=== PATIENT | female | born 1980 | race Caucasian/White ===

== ENCOUNTER 2021-03-27 10:56 | Emergency (ER) | payer OTHER ==
[~2021-03-27] VITALS: Ht 170.2 cm; Wt 117.7 kg
--- NOTE | 2021-03-27 11:28 | PHYS DOC ---
Past History Past Medical History: Other Additional Past Medical Histor: kidney transplant Past Surgical History: Hysterectomy, Other Additional Past Surgical Histo: kidney transplant in 2015 Smoking: Non-smoker Alcohol Use: Occasionally Drug Use: None Adult General Chief Complaint Chief Complaint: NAUSEA/VOMITING/DIARRHEA [facility] HPI Patient is a 40-year-old female presenting for nausea vomiting diarrhea. Symptom onset was yesterday evening, reports eating homemade hamburger grilled at work for lunch and later ate Bengali food dinner. Reports several hours after dinner experiencing generalized nausea, abdominal cramping with subsequent x3 episodes of nonbloody nonbilious emesis and looser stools than usual without blood. P.o. intake makes worse, nothing known makes better. Reports fatigue overnight. Woke up with continued nausea and x1 episode of nonbloody nonbilious emesis with ongoing nausea and feelings of dry heaving. Also reports decreased urine output than usual which concerns her given kidney history. 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 She called her transplant physician this morning to review case, it was advised she come to our ER for evaluation and if need be, transfer to [facility] for continued inpatient medical management as indicated. Patient denies recent travel, sick contacts, fever, vision changes, chest pain, shortness of breath, cough, abdominal pain besides generalized cramping, no UTI-like symptoms, no rashes Review of Systems Review of Systems Fourteen body systems of review of systems have been reviewed. See HPI for pertinent positives and negative responses, other aguilera all other systems are negative, non-pertinent or non-contributory Allergies Allergies Allergies Coded Allergies Type Severity Reaction Last Updated Verified No Known Drug Allergies 04/07/14 No Physical Exam Physical Exam Constitutional: Well developed, well nourished, no acute distress, non-toxic appearance. HENT: Normocephalic, atraumatic, bilateral external ears normal, oropharynx moist, no oral exudates, nose normal. Eyes: PERRLA, EOMI, conjunctiva normal, no discharge. Neck: Normal range of motion, no tenderness, supple, no stridor. Cardiovascular: Heart rate tachycardic, sinus rhythm, no murmurs rubs or gallops Lungs & Thorax: Bilateral breath sounds clear to auscultation Abdomen: Bowel sounds normal, soft, no tenderness, no masses, no pulsatile masses. Nonsurgical abdomen, no peritoneal signs Skin: Warm, dry, no erythema, no rash. Back: No tenderness, no CVA tenderness. Extremities: No tenderness, no cyanosis, no clubbing, ROM intact, no edema. Neurologic: Alert and oriented X 3, grossly normal motor & sensory function, no focal deficits noted. Psychologic: Affect normal, judgement normal, mood normal. Current Patient Data Vital Signs Vital Signs Date Time Temp Pulse Resp B/P (MAP) Pulse Ox O2 Delivery O2 Flow Rate FiO2 03/27/21 11:08 98.2 112 18 153/82 (105) 96 Room Air Lab Results Laboratory Tests Test 03/27/21 11:20 03/27/21 12:22 White Blood Count 7.3 x10^3/uL Red Blood Count 3.97 x10^6/uL Hemoglobin 13.3 g/dL Hematocrit 39.0 % Mean Corpuscular Volume 98 fL Mean Corpuscular Hemoglobin 33 pg Mean Corpuscular Hemoglobin Concent 34 g/dL Red Cell Distribution Width 13.3 % Platelet Count 176 x10^3/uL Neutrophils (%) (Auto) 85 % Lymphocytes (%) (Auto) 8 % Monocytes (%) (Auto) 6 % Eosinophils (%) (Auto) 1 % Basophils (%) (Auto) 0 % Neutrophils # (Auto) 6.2 x10^3uL Lymphocytes # (Auto) 0.6 x10^3/uL Monocytes # (Auto) 0.4 x10^3/uL Eosinophils # (Auto) 0.0 x10^3/uL Basophils # (Auto) 0.0 x10^3/uL Sodium Level 140 mmol/L Potassium Level 4.1 mmol/L Chloride Level 107 mmol/L Carbon Dioxide Level 24 mmol/L Anion Gap 9 Blood Urea Nitrogen 19 mg/dL Creatinine 1.2 mg/dL Estimated GFR (Cockcroft-Gault) 49.8 BUN/Creatinine Ratio 16 Glucose Level 104 mg/dL Lactic Acid Level 1.2 mmol/L Calcium Level 9.1 mg/dL Total Bilirubin 0.5 mg/dL Aspartate Amino Transf (AST/SGOT) 11 U/L Alanine Aminotransferase (ALT/SGPT) 23 U/L Alkaline Phosphatase 74 U/L Troponin I Quantitative < 0.017 ng/mL Total Protein 7.1 g/dL Albumin 3.5 g/dL Albumin/Globulin Ratio 1.0 Urine Collection Type Unknown Urine Color Margarette Urine Clarity Hazy Urine pH 5.5 Urine Specific [place] >=1.030 Urine Protein >100 mg/dl Urine Glucose (UA) Neg mg/dL Urine Ketones (Stick) Trace mg/dL Urine Blood Neg Urine Nitrite Neg Urine Bilirubin Small Urine Urobilinogen Dipstick 0.2 mg/dL Urine Leukocyte Esterase Neg Urine RBC 0 /HPF Urine WBC 1-4 /HPF Urine Squamous Epithelial Cells Mod /LPF Urine Bacteria Mod /HPF Current Medications Medications (Trade) Dose Ordered Sig/Ary Route PRN Reason Start Time Stop Time Status Last Admin Dose Admin Sodium Chloride 1,000 ml @ 1,000 mls/hr 1X ONCE IV 03/27/21 11:30 03/27/21 12:29 DC 03/27/21 11:42 Ondansetron HCl (Zofran) 4 mg 1X ONCE IVP 03/27/21 12:15 03/27/21 12:16 DC 03/27/21 12:18 EKG EKG EKG ordered and interpreted by myself at 1156 hrs. as sinus tachycardia at 101 bpm, unremarkable intervals, no axis deviation, T wave inversion noted in lead III otherwise no acute ischemic findings, no STEMI Radiology/Procedures Radiology/Procedures XR CHEST 1V INDICATION: tachycardia COMPARISON STUDY: None. FINDINGS: Lungs: Normal lung volume. No pulmonary mass or consolidation. The tracheobronchial tree and hilar structures are normal. Pleura: No pleural effusion or pneumothorax. Heart and Mediastinum: The cardiomediastinal silhouette is normal. The great vessels of the thorax are normal. Bones and Soft Tissues: The bones and soft tissues are within normal limits. IMPRESSION: No acute cardiopulmonary process. Electronically signed by: Nimesh Kwon MD (03/27/2021 11:52 AM) [id number] Heart Score C/O Chest Pain: No HEART Score for Chest Pain: HEART Score for Chest Pain Response (Comments) Value History Slighlty/Non-Suspicious 0 ECG Normal 0 Age < 45 0 Risk Factors 1 or 2 Risk Factors 1 Troponin < Normal Limit 0 Total 1 Risk Factors: Risk Factors: DM, Current or recent (<one month) smoker, HTN, HLP, family history of CAD, obesity. Risk Scores: Risk Factors: DM, Current or recent (<one month) smoker, HTN, HLP, family history of CAD, obesity. Course & Med Decision Making Course & Med Decision Making Tachycardic otherwise hemodynamically stable. HPI concerning for dehydration and patient with kidney transplant and immunocompromise, physical exam and ER work-up nonconcerning. Patient tolerated ER intervention including IV fluid rehydration and antiemetics well, asymptomatic and nonconcerning on clinical examination after being reevaluated several times. Discussed little utility in further diagnostic work- up in ER setting and/or need for hospital transfer for higher acuity of care Joint decision made to discharge home with close PCP follow-up and continued supportive care advised. Strict return precautions discussed with good understanding. All questions and concerns addressed prior to your departure Dragon Disclaimer Dragon Disclaimer This electronic medical record was generated, in whole or in part, using a voice recognition dictation system. Departure Departure: Impression: Primary Impression: Nausea, vomiting and diarrhea Disposition: HOME / SELF CARE / HOMELESS Condition: STABLE Referrals: LUCIAN CUADRA MD (PCP) Patient Instructions: Nausea and Vomiting Additional Instructions: You were seen for nausea, vomiting and diarrhea. You most likely have a viral illness which should resolve in the next few days to a week. Your vital signs, physical examination and comprehensive ER work-up was nonconcerning for any emergent or surgical issues. You tolerated IV fluid rehydration and antinausea medication while in ER. Please contact your primary care physician first thing on Monday to review your ER visit today and need for close outpatient follow-up. You should return to the ED if you develop abdominal pain, fever > 100.3, black/bloody stools, black/bloody vomiting, cannot keep water down, or any other new or concerning symptoms. Scripts Ondansetron (ONDANSETRON ODT) 4 Mg Tab.rapdis 1 TAB PO PRN Q6-8HRS for NAUSEA, #16 TAB Prov: LILLY GALEANO DO 03/27/21 LILLY GALEANO DO Mar 27, 2021 11:28
[2021-03-27] MEDS ORDERED: IV NORMAL SALINE 1,000ML 1,000 ML IV ONE (11:30)
[2021-03-27 11:36] LABS: BASO % 0 % (0-3); EOS % 1 % (0-3); HEMOGLOBIN 13.3 g/dL (12.0-15.5); LYMPH # 0.6 x10^3/uL (1.0-4.8); LYMPH % 8 % (24-48); MEAN CORPUSCULAR HEMOGLOBIN 33 pg (25-35); MEAN CORPUSCULAR HGB CONC 34 g/dL (31-37); MEAN CORPUSCULAR VOLUME 98 fL (79-100); MONO # 0.4 x10^3/uL (0.0-1.1); MONO % 6 % (0-9); NEUT # 6.2 x10^3uL (1.8-7.7); NEUT % 85 % (31-73); PLATELET COUNT 176 x10^3/uL (140-400); RED BLOOD COUNT 3.97 x10^6/uL (3.50-5.40); RED CELL DISTRIBUTION WIDTH 13.3 % (11.5-14.5); WHITE BLOOD COUNT 7.3 x10^3/uL (4.0-11.0)
[2021-03-27 11:42] VITALS: BP 121/72
[2021-03-27 11:48] LABS: CALCIUM 9.1 mg/dL (8.5-10.1); CREATININE 1.2 mg/dL (0.6-1.0); GFR 49.8; POTASSIUM 4.1 mmol/L (3.5-5.1)
[2021-03-27 11:55] LABS: ALBUMIN 3.5 g/dL (3.4-5.0); TOTAL BILIRUBIN 0.5 mg/dL (0.2-1.0); TOTAL PROTEIN 7.1 g/dL (6.4-8.2)
--- NOTE | 2021-03-27 11:55 | RAD ---
XR CHEST 1V INDICATION: tachycardia COMPARISON STUDY: None. FINDINGS: Lungs: Normal lung volume. No pulmonary mass or consolidation. The tracheobronchial tree and hilar st ructures are normal. Pleura: No pleural effusion or pneumothorax. Heart and Mediastinum: The cardiomediastinal silhouette is normal. The great vessels of the thorax ar e normal. Bones and Soft Tissues: The bones and soft tissues are within normal limits. IMPRESSION: No acute cardiopulmonary process. Electronically signed by: Nimesh Kwon MD (03/27/2021 11:52 AM) [id number]
--- NOTE | 2021-03-27 12:05 | EKG ---
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
[2021-03-27] MEDS ORDERED: ONDANSETRON PF 4 MG/2 ML VIAL. IVP ONE (12:15)
[2021-03-27] MEDS ORDERED: ONDA4TAB12 PO (13:14)
[2021-03-27 13:20] LABS: BILIRUBIN,URINE SMALL (NEG); CLARITY,URINE HAZY; COLOR,URINE AMBER; GLUCOSE,URINE NEG (NEG); NITRITE,URINE NEG (NEG); UROBILINOGEN,URINE 0.2 mg/dL (0.2 mg/dL)
[2021-03-27 13:22] LABS: BACTERIA,URINE MOD /HPF (0-FEW); RBC,URINE 0 /HPF (0-2); SQUAMOUS EPITHELIAL CELL,UR MOD /LPF
== END 2021-03-27 13:30 | disposition home or self-care (01) ==
LOC: ER 10:56
DX: R11.2 Nausea with vomiting, unspecified (principal); R19.7 Diarrhea, unspecified; Z90.710 Acquired absence of both cervix and uterus
CPT/HCPCS: 36415; 71045; 80053; 81001; 83605; 84484; 85025; 87040; 87086; 93005; 96361; 96374; 99285; J2405; J7030

== ENCOUNTER 2021-08-22 08:33 | Emergency (ER) | payer OTHER ==
[~2021-08-22] VITALS: Ht 170.2 cm; Wt 118.5 kg
[~2021-08-22 08:33] MED LIST: ONDA4TAB12 PO
[2021-08-22] MEDS ORDERED: ONDANSETRON ODT 4 MG TAB.RAPDIS ONE (08:52)
[2021-08-22] MEDS ORDERED: ONDANSETRON PF 4 MG/2 ML VIAL. ONE (08:53)
--- NOTE | 2021-08-22 08:57 | PHYS DOC ---
Past History Past Medical History: Other Additional Past Medical Histor: IGA neuropathy Past Surgical History: Hysterectomy, Other Additional Past Surgical Histo: right side kidney transplant Smoking: Non-smoker Alcohol Use: Occasionally Drug Use: None Adult General Chief Complaint Chief Complaint: NAUSEA/VOMITING/DIARRHEA HPI HPI Patient is a 41-year-old female presenting for nausea vomit diarrhea. Onset was approximately 4 to 5 hours ago and woke her from sleep. She presents stating she thinks she got food poisoning. Reports p.o. ingestion yesterday of takeout fried chicken at approximately 1 PM and later had a pink cooked hamburger that was questionably cooked around 9 PM. States she woke up this morning at 3 AM out of her sleep with a wave of nausea and abdominal cramping. Since then, she has had a total of x6 nonbloody nonbilious episodes of emesis and approximately the same amount of nonbloody looser stools than usual. She feels dehydrated and has had ongoing nausea and inability to keep down p.o. fluids sick patient presented to our ER for evaluation. Patient's only pertinent medical issue is fact that she had left nephrectomy in 2014 for IgA nephropathy. She has no other medical diagnoses, takes no medications besides her daily antirejection medications on a daily basis Review of Systems Review of Systems Fourteen body systems of review of systems have been reviewed. See HPI for pertinent positives and negative responses, other aguilera all other systems are negative, non-pertinent or non-contributory Current Medications Current Medications Current Medications Medications (Trade) Dose Ordered Sig/Ary Start Time Stop Time Status Last Admin Dose Admin Ondansetron HCl (Zofran Odt) 4 mg STK-MED ONCE 08/22/21 08:52 08/22/21 08:52 DC Ondansetron HCl (Zofran) 4 mg STK-MED ONCE 08/22/21 08:53 08/22/21 08:53 DC Allergies Allergies Allergies Coded Allergies Type Severity Reaction Last Updated Verified No Known Drug Allergies 08/22/21 No Physical Exam Physical Exam Constitutional: Well developed, well nourished, no acute distress, non-toxic appearance but patient is actively vomiting during examination HENT: Normocephalic, atraumatic, bilateral external ears normal, oropharynx moist, no oral exudates, nose normal. Eyes: PERRLA, EOMI, conjunctiva normal, no discharge. Neck: Normal range of motion, no tenderness, supple, no stridor. Cardiovascular: Heart rate tachycardic, sinus rhythm, no murmurs rubs or gallops Lungs & Thorax: Bilateral breath sounds clear to auscultation Abdomen: Bowel sounds normal, soft, no tenderness, no masses, no pulsatile masses. Nonsurgical abdomen, no peritoneal signs Skin: Warm, dry, no erythema, no rash. Back: No tenderness, no CVA tenderness. Extremities: No tenderness, no cyanosis, no clubbing, ROM intact, no edema. Neurologic: Alert and oriented X 3, grossly normal motor & sensory function, no focal deficits noted. Psychologic: Anxious affect and mood Current Patient Data Vital Signs Vital Signs Date Time Temp Pulse Resp B/P (MAP) Pulse Ox O2 Delivery O2 Flow Rate FiO2 08/22/21 08:45 98.5 130 20 130/82 (98) 95 Room Air Lab Results Current Medications Medications (Trade) Dose Ordered Sig/Ary Route PRN Reason Start Time Stop Time Status Last Admin Dose Admin Ondansetron HCl (Zofran Odt) 4 mg STK-MED ONCE .ROUTE 08/22/21 08:52 08/22/21 08:52 DC Ondansetron HCl (Zofran) 4 mg STK-MED ONCE .ROUTE 08/22/21 08:53 08/22/21 08:53 DC Sodium Chloride 1,000 ml @ 1,000 mls/hr Q1H IV 08/22/21 09:00 08/22/21 09:59 DC 08/22/21 09:06 Ondansetron HCl (Zofran) 4 mg 1X ONCE IVP 08/22/21 09:00 08/22/21 09:01 DC 08/22/21 09:07 Sodium Chloride 1,000 ml @ 1,000 mls/hr 1X ONCE IV 08/22/21 10:00 08/22/21 10:59 DC 08/22/21 10:46 Fentanyl Citrate (Fentanyl 2ml Vial) 50 mcg 1X ONCE IVP 08/22/21 11:00 08/22/21 11:01 DC 08/22/21 11:02 EKG EKG EKG ordered and interpreted by myself at 0911 hrs. as sinus tachycardia at 129 bpm, unremarkable intervals, no axis deviation, nonspecific T wave inversion noted in lead aVF otherwise no acute ischemic findings, no STEMI Radiology/Procedures Radiology/Procedures [] Heart Score C/O Chest Pain: No HEART Score for Chest Pain: HEART Score for Chest Pain Response (Comments) Value History Slighlty/Non-Suspicious 0 ECG Nonspecific Repolarizatio 1 Age < 45 0 Risk Factors 1 or 2 Risk Factors 1 Troponin < Normal Limit 0 Total 2 Risk Factors: Risk Factors: DM, Current or recent (<one month) smoker, HTN, HLP, family history of CAD, obesity. Risk Scores: Risk Factors: DM, Current or recent (<one month) smoker, HTN, HLP, family history of CAD, obesity. Course & Med Decision Making Course & Med Decision Making ABCs unremarkable. I disclosed entirety of ER findings and discussed most likely diagnosis of nausea vomit diarrhea, likely self-limiting in etiology such as gastroenteritis. Other diagnoses were discussed with patient such as intra- abdominal abnormalities and other potentially life-threatening diagnoses but all deemed less likely causes of patient's presentation. Patient symptoms improved with provided ER intervention that included IV fluid resuscitation, antiemetics and pain medication. Discussed potential need for further diagnostic work-up the patient's symptoms completely resolved with improvement of generalized abdominal discomfort. Little indication for further diagnostic work-up in ER setting. Plan of care discussed at length with need for close outpatient follow-up to review today's ER visit stressed. Strict return precautions were also discussed at length with good understanding verbalized by patient. Patient voiced understanding and agreement with the plan. Patient knows to come back for repeat evaluation if concerning signs or symptoms present prior to outpatient follow-up. Hemodynamically stable, ambulatory and well-appearing at time of disposition. Dragon Disclaimer Dragon Disclaimer This electronic medical record was generated, in whole or in part, using a voice recognition dictation system. Departure Departure: Impression: Primary Impression: Nausea & vomiting Disposition: HOME / SELF CARE / HOMELESS Condition: IMPROVED Referrals: LUCIAN CUADRA MD (PCP) Patient Instructions: Nausea and Vomiting Additional Instructions: You were seen for nausea and vomiting. You most likely have a viral illness which should resolve in the next few days to a week. Your symptoms improved with IV fluid rehydration, antiemetics and pain medication. You should return to the ED if you develop abdominal pain, fever > 100.3, black/bloody stools, black/bloody vomiting, cannot keep water down, or any other new or concerning symptoms. Scripts Ondansetron (ONDANSETRON ODT) 4 Mg Tab.rapdis 1 TAB PO PRN Q6-8HRS for nausea, #16 TAB Prov: LILLY GALEANO DO 08/22/21 LILLY GALEANO DO Aug 22, 2021 08:57
[2021-08-22] MEDS ORDERED: IV NORMAL SALINE 1,000ML 1,000 ML IV SCH (09:00)
[2021-08-22] MEDS ORDERED: ONDANSETRON PF 4 MG/2 ML VIAL. IVP ONE (09:00)
--- NOTE | 2021-08-22 09:10 | EKG ---
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
[2021-08-22] MEDS ORDERED: IV NORMAL SALINE 1,000ML 1,000 ML IV ONE (10:00)
[2021-08-22 10:02] LABS: BASO % 0 % (0-3); EOS % 0 % (0-3); HEMATOCRIT 44.4 % (36.0-47.0); LYMPH % 9 % (24-48); MEAN CORPUSCULAR HEMOGLOBIN 33 pg (25-35); MEAN CORPUSCULAR HGB CONC 34 g/dL (31-37); MEAN CORPUSCULAR VOLUME 99 fL (79-100); MONO # 0.8 x10^3/uL (0.0-1.1); MONO % 8 % (0-9); NEUT # 8.7 x10^3uL (1.8-7.7); NEUT % 82 % (31-73); PLATELET COUNT 197 x10^3/uL (140-400); RED BLOOD COUNT 4.48 x10^6/uL (3.50-5.40); RED CELL DISTRIBUTION WIDTH 14.2 % (11.5-14.5); WHITE BLOOD COUNT 10.6 x10^3/uL (4.0-11.0)
[2021-08-22 10:04] LABS: CALCIUM 9.4 mg/dL (8.5-10.1); CREATININE 1.1 mg/dL (0.6-1.0); GFR 54.7
[2021-08-22 10:16] LABS: ALBUMIN 3.7 g/dL (3.4-5.0); ALBUMIN/GLOBULIN RATIO 1.2 (1.0-1.7); TOTAL BILIRUBIN 0.5 mg/dL (0.2-1.0); TOTAL PROTEIN 6.7 g/dL (6.4-8.2)
[2021-08-22] MEDS ORDERED: ONDA4TAB12 PO (11:25)
[2021-08-22 12:31] VITALS: BP 112/68
== END 2021-08-22 12:41 | disposition home or self-care (01) ==
LOC: ER 08:33
DX: R11.2 Nausea with vomiting, unspecified (principal); R19.7 Diarrhea, unspecified; Z90.710 Acquired absence of both cervix and uterus
CPT/HCPCS: 36415; 80053; 83605; 83690; 84484; 85025; 87040; 93005; 96361; 96374; 96375; 99285; J2405; J3010; J7030